=== PATIENT | female | born 1995 | race Caucasian/White ===

== ENCOUNTER 2018-11-24 12:49 | Emergency (ER) | payer OTHER ==
[~2018-11-24] VITALS: Ht 160 cm; Wt 49.4 kg
[2018-11-24] MEDS ORDERED: NOHOMEMEDICATIONS (13:01)
[2018-11-24 13:11] LABS: URINE BILIRUBIN NEGATIVE (Negative); URINE BLOOD 3+ (Negative); URINE CLARITY CLEAR; URINE COLOR YELLOW; URINE GLUCOSE-RANDOM NEGATIVE (Negative); URINE KETONES NEGATIVE (Negative); URINE LEUKOCYTES-REFLEX NEGATIVE (Negative); URINE NITRITE-REFLEX NEGATIVE (Negative); URINE PROTEIN NEGATIVE (Negative); URINE SPECIFIC GRAVITY 1.015 (1.005-1.030); URINE UROBILINOGEN 0.2 E.U./dl (0.2-1.0)
[2018-11-24 13:19] LABS: SQUAMOUS >10 Many /LPF (0-3)
[2018-11-24 13:20] LABS: HEMATOCRIT 42.4 % (37.0-47.0); HEMOGLOBIN 14.3 gm/dL (12.0-15.0); MCHC 33.9 g/dL (28.0-37.0); MCV 94.5 fL (80.0-100.0); NUCLEATED RBCS 0 /100WBC; PLATELET COUNT* 232 thou/uL (150-400); RBC 4.48 mil/uL (4.20-5.00); RDW-CV 12.1 % (10.5-14.5); WBC 6.4 thou/uL (4.0-11.0)
[2018-11-24 13:20] LABS: CASTS None Seen /LPF (None Seen); CRYSTALS None Seen /LPF (None Seen); MUCUS >6 Heavy strn/LPF (None Seen); URINE RBC >20 Many /HPF (0-2); URINE WBC-REFLEX 0-5 Rare /HPF (0-5)
[2018-11-24 13:29] LABS: CALCIUM 9.3 mg/dL (8.5-10.1); CREATININE 0.8 mg/dL (0.6-1.3)
[2018-11-24 13:33] LABS: ALBUMIN 4.6 g/dL (3.4-5.0); TOTAL BILIRUBIN 0.5 mg/dL (<0.1-1.0); TOTAL PROTEIN 7.8 g/dL (6.4-8.2)
[2018-11-24 13:47] LABS: ABSOLUTE EOSINOPHILS 0.3 thou/uL (0.0-0.7); ABSOLUTE MONOCYTES 0.3 thou/uL (0.0-1.2); ABSOLUTE NEUTROPHILS 3.7 thou/uL (1.6-8.1); ATYPICAL LYMPHS 1 %; PLATELET ESTIMATE ADEQUATE
[2018-11-24 14:29] VITALS: BP 98/65
== END 2018-11-24 14:30 | disposition home or self-care (01) ==
LOC: M.ERS 12:49
PROVIDERS: Nurse Practitioner Family
DX: Z32.02 Encounter for pregnancy test, result negative (principal); N93.9 Abnormal uterine and vaginal bleeding, unspecified; F17.210 Nicotine dependence, cigarettes, uncomplicated; Z88.1 Allergy status to other antibiotic agents; Z88.8 Allergy status to other drugs, medicaments and biological substances

== ENCOUNTER 2019-03-31 07:03 | Emergency (ER) | payer OTHER ==
[~2019-03-31] VITALS: Ht 162.6 cm; Wt 49.9 kg
[~2019-03-31 07:03] MED LIST: NOHOMEMEDICATIONS
[2019-03-31 07:08] VITALS: BP 117/65
[2019-03-31] MEDS ORDERED: ZPAK PO (07:30)
[2019-03-31] MEDS ORDERED: VENTOLIN HFA 1818 GM INH (07:30)
== END 2019-03-31 07:38 | disposition home or self-care (01) ==
LOC: M.ERS 07:03
DX: J18.9 Pneumonia, unspecified organism (principal); Z88.1 Allergy status to other antibiotic agents; Z88.8 Allergy status to other drugs, medicaments and biological substances; F17.210 Nicotine dependence, cigarettes, uncomplicated

== ENCOUNTER 2020-04-15 19:10 | Emergency (ER) | payer OTHER ==
[~2020-04-15] VITALS: Ht 160 cm; Wt 52.2 kg
[~2020-04-15 19:10] MED LIST changes: +VENTOLIN HFA 1818 GM INH; +ZPAK PO
[2020-04-15 20:48] LABS: INFLUENZA A ANTIGEN Negative (Negative); INFLUENZA B ANTIGEN Negative (Negative)
[2020-04-15] MEDS ORDERED: Magic mouthwash SW&SWALLOW (21:35)
[2020-04-15] MEDS ORDERED: IBUPROFEN 600600 M1 PO (21:35)
[2020-04-15 21:42] VITALS: BP 129/65
== END 2020-04-15 21:42 | disposition home or self-care (01) ==
LOC: M.ERS 19:10
PROVIDERS: Personal Emergency Response Attendant
DX: J02.9 Acute pharyngitis, unspecified (principal); Z20.828 Contact with and (suspected) exposure to other viral communicable diseases; Z88.1 Allergy status to other antibiotic agents

== ENCOUNTER 2020-04-20 19:19 | Emergency (ER) | payer OTHER ==
[~2020-04-20] VITALS: Ht 162.6 cm; Wt 52.2 kg
[~2020-04-20 19:19] MED LIST changes: +IBUPROFEN 600600 M1 PO; +Magic mouthwash SW&SWALLOW
[2020-04-20 19:47] LABS: URINE BILIRUBIN NEGATIVE (Negative); URINE BLOOD 2+ (Negative); URINE CLARITY CLEAR; URINE COLOR YELLOW; URINE GLUCOSE-RANDOM NEGATIVE (Negative); URINE KETONES NEGATIVE (Negative); URINE LEUKOCYTES-REFLEX NEGATIVE (Negative); URINE NITRITE-REFLEX NEGATIVE (Negative); URINE PROTEIN NEGATIVE (Negative); URINE SPECIFIC GRAVITY >= 1.030 (1.005-1.030); URINE UROBILINOGEN 0.2 E.U./dl (0.2-1.0)
[2020-04-20 20:01] LABS: BACTERIA-REFLEX >30 Many /HPF (None Seen); CASTS None Seen /LPF (None Seen); CRYSTALS None Seen /LPF (None Seen); MUCUS >6 Heavy strn/LPF (None Seen); SQUAMOUS >10 Many /LPF (0-3); URINE RBC 0-2 Rare /HPF (0-2); URINE WBC-REFLEX 6-15 Few /HPF (0-5)
[2020-04-20 20:09] LABS: ABSOLUTE EOSINOPHILS 0.3 thou/uL (0.0-0.7); ABSOLUTE LYMPHOCYTES 2.3 thou/uL (0.8-5.3); ABSOLUTE MONOCYTES 0.5 thou/uL (0.0-1.2); ABSOLUTE NEUTROPHILS 4.8 thou/uL (1.6-8.1); BASOPHILS 0.6 %; EOSINOPHILS 3.7 %; HEMATOCRIT 41.5 % (37.0-47.0); HEMOGLOBIN 13.8 gm/dL (12.0-15.0); MCH 31.6 pg (26.0-34.0); MCHC 33.3 g/dL (28.0-37.0); MCV 94.9 fL (80.0-100.0); MONOCYTES 6.4 %; MPV 8.5 fl. (7.2-11.1); NUCLEATED RBCS 0 /100WBC; PLATELET COUNT* 235 thou/uL (150-400); POLYS 60.3 %; RBC 4.38 mil/uL (4.20-5.00); RDW-CV 12.3 % (10.5-14.5)
[2020-04-20 20:28] LABS: CREATININE 0.7 mg/dL (0.6-1.3); POTASSIUM 3.9 mmol/L (3.5-5.1)
[2020-04-20 20:39] LABS: ALBUMIN 4.5 g/dL (3.4-5.0); MAGNESIUM 2.2 mg/dL (1.8-2.4); TOTAL BILIRUBIN 0.6 mg/dL (<0.1-1.0); TOTAL PROTEIN 7.8 g/dL (6.4-8.2)
[2020-04-20] MEDS ORDERED: ZANAFLEX4 MG PO (21:21)
[2020-04-20] MEDS ORDERED: MEDROLDOSEPACK PO (21:21)
[2020-04-20] MEDS ORDERED: NORCO 5-325 TA1 EAC2 PO (21:21)
[2020-04-20 21:35] VITALS: BP 107/62
--- NOTE | 2020-04-21 10:03 | EKG ---
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[place] : 1995 Requested By: Melissa Rubin Order Number: [id number] MD: Christian Medeiros Measurements Intervals [place] Rate: 66 P: 14 WA: 125 QRS: 62 QRSD: 101 T: 45 QT: 422 QTc: 443 Interpretive Statements Sinus arrhythmia Abnormal Q suggests anterior infarct No previous ECG available for comparison Electronically Signed On 04-21-2020 10:03:41 ADVERTISING EDITOR by Christian Medeiros [email or web address] <ELECTRONICALLY SIGNED> By: Christian Medeiros MD, [facility] 04/21/20 1003 09 09 Christian Medeiros MD, FACC /EPI
== END 2020-04-20 21:37 | disposition home or self-care (01) ==
LOC: M.ERS 19:19
PROVIDERS: Nurse Practitioner Family
DX: R06.00 Dyspnea, unspecified (principal); Z20.828 Contact with and (suspected) exposure to other viral communicable diseases; M54.6 Pain in thoracic spine; F17.210 Nicotine dependence, cigarettes, uncomplicated; Z88.1 Allergy status to other antibiotic agents